=== PATIENT | male | born 1955 | race Caucasian/White ===

== ENCOUNTER → 2016-12-02 | Outpatient (CLI) | payer BC ==
[2014-09-15 11:00] VITALS: BP 136/86
[~2016-12-02] MED LIST: ACET325T9 PO; AMLO5TAB2 PO; AMOX1TAB61 PO; FAMO20TA5 PO; Hydrocodone/Acetaminophen PO; INSU100I17 SQ; IOHEXOL 240 MG/ML 50ML VIAL. IV ONE; IOHEXOL 240 MG/ML 50ML VIAL. PO ONE; METF500T4 PO; MONT10TA9 PO; OMEG1CAP28 PO; PRAV40TA2 PO; SPIR25TA3 PO; TAMS0.4C2 PO; Trazodone Hcl PO
--- NOTE | 2016-12-02 11:57 | KCIC ---
Indication: Left lower quadrant pain. History of renal stones and of diverticulitis. Symptoms began yesterday. Febrile Technique: Axial images and coronal and sagittal reformatted images are provided. Comparison is from September 13, 2014. One or more of the following individualized dose reduction techniques were utilized for this examination: 1. Automated exposure control 2. Adjustment of the mA and/or kV according to patient size 3. Use of iterative reconstruction technique Findings: There is minimal atelectasis or scarring in the included lung alexandre. There is no pleural effusion. The heart is not enlarged. Coronary artery calcifications are noted. Solid organ evaluation is limited without contrast. Oral contrast was administered. There is minimal fatty infiltration of the liver. Gallbladder is unremarkable. Benign calcifications are noted in the spleen. The pancreas and adrenals are unremarkable. There is nonspecific stranding of the perinephric fat bilaterally, symmetric. There is a nonobstructing left renal calculus measuring 5 mm. There is no obstructing calculus. Neither ureter is dilated. Exophytic probable cyst in the left kidney measures 10 mm and was present on prior. There is atheromatous disease in the abdominal aorta without aneurysm. There is no dilated small bowel loop or air-fluid level. There is no definite mural thickening. There is stranding about a segment of the sigmoid colon with multiple diverticula noted in this region. No abscess or free air is apparent. Normal appendix is visualized. Bladder and prostate are unremarkable. There are a few prostate calcifications but no prostatic enlargement. There is no free pelvic fluid. There are degenerative changes in the spine. IMPRESSION: 1. Findings of an acute diverticulitis involving the sigmoid colon without evidence of abscess. 2. Nonobstructing left renal calculus. Electronically signed by: Camron Solis MD (12/02/2016 11:54 AM) [facility]
== END | disposition home or self-care (01) ==
LOC: KCIC CT 10:37
PROVIDERS: ATTEND Nurse Practitioner Family
DX: N20.0 Calculus of kidney (principal); K76.0 Fatty (change of) liver, not elsewhere classified; Z87.442 Personal history of urinary calculi
CPT/HCPCS: 74176; 82565; Q9966

== ENCOUNTER → 2018-11-02 | Outpatient (CLI) | payer BC ==
[2014-09-15 11:00] VITALS: BP 136/86
[~2018-11-02] MED LIST changes: +AMLO5TAB10 PO; -AMLO5TAB2 PO; -IOHEXOL 240 MG/ML 50ML VIAL. IV ONE; -IOHEXOL 240 MG/ML 50ML VIAL. PO ONE; +METF500T16 PO; -METF500T4 PO; +MONT10TA49 PO; -MONT10TA9 PO; -SPIR25TA3 PO; +SPIR25TA5 PO
--- NOTE | 2018-11-02 10:05 | CARD ---
MR#: [id number] Date of Study: 11/02/2018 Ordering Physician: ADILIA DODD, Referring Physician: ADILIA DODD, Tech: [facility] APPROVED REPORT EXAM: Two-dimensional and M-mode echocardiogram with Doppler and color Doppler. Other Information Quality : Technically LimitedHR: 67bpm Rhythm : NSRTechnically limited study due to body habitus. INDICATION Dyspnea CAD 2D DIMENSIONS RVDd3.1 (2.9-3.5cm)Left Atrium(2D)4.0 (1.6-4.0cm) IVSd1.6 (0.7-1.1cm)Aortic Root(2D)3.7 (2.0-3.7cm) LVDd5.2 (3.9-5.9cm)LVOT Diameter2.5 (1.8-2.4cm) PWd1.2 (0.7-1.1cm)LVDs3.7 (2.5-4.0cm) FS (%) 28.4 %SV69.9 ml LVEF(%)54.4 (>50%) M-Mode DIMENSIONS Left Atrium(MM)4.10 (2.5-4.0cm)Aortic Root3.88 (2.2-3.7cm) Aortic Valve AoV Peak Sal.100.0cm/sAoV VTI20.4cm AO Peak GR.4.0mmHgLVOT Peak Sal.66.6cm/s AO Mean GR.2mmHgAVA (VMAX)3.35cm2 HARI (VTI)3.40cm2 Mitral Valve MV E Sewvcrhv19.9cm/sMV DECEL [id number] MV A Pxfoczjq73.6cm/sE/A Ratio0.9 Pulmonary Valve PV Peak Rnvxmakv814.6cm/s Tricuspid Valve TR P. Ehamjcjf233ip/sRAP YCRHLFOT1oyCx TR Peak Gr.90bgTvLOPP12mwMw LEFT VENTRICLE The left ventricle is normal size. There is moderate concentric left ventricular hypertrophy. The lef t ventricular systolic function is normal. The Ejection Fraction is 55-60%. There is normal LV segmen keron wall motion. Transmitral Doppler flow pattern is Grade I-abnormal relaxation pattern. RIGHT VENTRICLE The right ventricle is normal size. There is normal right ventricular wall thickness. The right ventr icular systolic function is normal. ATRIA The left atrium is mildly dilated. The right atrium size is normal. The interatrial septum is intact with no evidence for an atrial septal defect or patent foramen ovale as noted on 2-D or Doppler imagi ng. AORTIC VALVE The aortic valve is normal in structure and function. The aortic valve is trileaflet. Doppler and Col or Flow revealed no significant aortic regurgitation. There is no significant aortic valvular stenosi s. MITRAL VALVE The mitral valve is normal in structure and function. There is no evidence of mitral valve prolapse. There is no mitral valve stenosis. Doppler and Color Flow revealed no mitral valve regurgitation note d. TRICUSPID VALVE The tricuspid valve is normal in structure and function. Doppler and Color Flow revealed trace tricus pid regurgitation. The PA pressure was estimated at 31 mmHg. There is no tricuspid valve prolapse or vegetation. There is no tricuspid valve stenosis. PULMONIC VALVE The pulmonic valve is not well visualized. GREAT VESSELS The aortic root is normal size. The ascending aorta is normal in size. The IVC is normal in size and collapses >50% with inspiration. PERICARDIAL EFFUSION There is no evidence of significant pericardial effusion. Critical Notification Critical Value: No <Conclusion> The left ventricular systolic function is normal. The Ejection Fraction is 55-60%. There is normal LV segmental wall motion. Transmitral Doppler flow pattern is Grade I-abnormal relaxation pattern. Trace tricuspid regurgitation. The PA pressure was estimated at 31 mmHg. There is no evidence of significant pericardial effusion. Signed by : Mayo Tadeo, Electronically Approved : 11/02/2018 10:05:13
== END | disposition home or self-care (01) ==
LOC: ECHO 07:33
PROVIDERS: ATTEND Internal Medicine Cardiovascular Disease
DX: I25.10 Atherosclerotic heart disease of native coronary artery without angina pectoris (principal); I51.7 Cardiomegaly
CPT/HCPCS: 93306